=== PATIENT | female | born 1950 | race Caucasian/White ===

== ENCOUNTER 2021-09-08 13:46 | Emergency (ER) | payer BC, SELFPAY ==
[2021-09-08 14:23] VITALS: BP 167/90; PULSE 73; RESP 18; TEMP 36.7; O2SAT 100; BMI 29.2
--- NOTE | 2021-09-08 14:31 | CT_ITS ---
WS: [id number] CT HEAD TECHNIQUE: Noncontrast CT of the head obtained from the skullbase to the vertex. CLINICAL INFORMATION: trauma/fall/laceration COMPARISON: None. DLP: 939.[address] scans at [facility] use at least one of these dose optimization techniques: automated e xposure control; mA and/or kV adjustment per patient size (includes targeted exams where dose is matc hed to clinical indication); or iterative reconstruction. FINDINGS: No evidence of intracranial hemorrhage or mass effect. Ventricular system and basal cisterns are christianson nt. Mild small vessel changes with mild parenchymal volume loss. No extra-axial fluid collections. No evidence of mass or mass effect. Normal mclaughlin-white differentiation. Paranasal sinuses and mastoid air cells are well aerated. . Small sebaceous cyst left frontal scalp. Soft tissue laceration at the vertex. No visualized fractures. CT/CT head wo con* [id number] IMPRESSION: 1. No evidence of intracranial hemorrhage or mass effect. 2. Soft tissue laceration at the vertex. No visualized fractures. 3. No acute intracranial findings.
--- NOTE | 2021-09-08 14:31 | XR_ITS ---
WS: [id number] XR sacrum coccyx min 2V [id number] REASON FOR EXAM: fall/pain FINDINGS: No fracture or bone lesion of the sacrum or coccyx is identified. No soft tissue abnormality. XR/XR sacrum coccyx min 2V [id number] IMPRESSION: No acute abnormality.
--- NOTE | 2021-09-08 14:31 | W.ED.FALL ---
Documented by User: MIKE Baires 09/08/21 15:53 HPI - Fall General: Chief Complaint: Wound/Laceration Stated Complaint: GASH IN HEAD Time Seen by Provider: 09/08/21 14:27 Source: patient Mode of arrival: ambulatory Limitations: no limitations History of Present Illness: Patient is a nice 71-year-old female who presents to the ED today following a fall. 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 She states she sustained a laceration. No LOC. Patient is not on anticoagulation. She has no complaints of neck pain or back pain. Last tetanus unknown. Patient states she fell on her tailbone first and then struck her head. She does complain of tailbone pain. She has been ambulatory since the event without difficulty. She has no other complaints at this time. MD complaint: fall Onset (ago): hour(s) Fall from: standing Fall witnessed: no Place fall occurred: other ([place]) Loss of consciousness: None Prolonged down time: no Symptoms prior to fall: none Context: tripped/slipped Location of injury: head and other (coccyx) Associated symptoms-after fall: Reports no associated symptoms and headache(s); Denies abdominal pain, chest pain, confusion, difficulty walking or neck pain Review of Systems Eyes: Denies: change in vision, blurry vision, photophobia, floaters or seeing flashes Card: Denies: chest pain Resp: Denies: dyspnea GI: Denies: abdominal pain, nausea or vomiting Musc: Reports: back pain (reports tailbone pain); Denies: neck pain, extremity pain or joint pain Skin/Breast: Reports: other (scalp laceration) Neuro: Reports: headache(s); Denies: numbness in extremities, weakness in extremities, sensory changes, lack of coordination, difficulty walking, frequent falls, dizziness, confusion, behavioral changes, Slurred speech present or difficulty communicating thoughts Physical Exam Const: COMMON NORMALS: no acute distress, average body habitus, patient oriented x3, no limitations, healthy appearing, alert and well nourished GENERAL APPEARANCE: cooperative, comfortable, well kempt and well developed ORIENTATION/CONSCIOUSNESS: Yes awake, Yes oriented to person, Yes oriented to place and Yes oriented to time HENMT: COMMON NORMALS: normocephalic and Normal external nose present HEAD & SCALP: normocephalic HEAD IMAGES: 1. 1cm scalp laceration; no bleeding FACE & SINUS: normal facial exam NOSE: Normal external nose present Eye: GENERAL EYE: appearance normal, both eyes and all related structures Neck/C-Spine: COMMON NORMALS: full ROM CERVICAL SPINE: Yes cervical ROM normal, No pain with cervical ROM, No Cervical spine tenderness, No step off deformity and No Paracervical muscle tenderness Chest: COMMONS NORMALS: normal inspection of the chest and normal palpation of entire chest wall Resp: COMMON NORMALS: normal respiratory effort and clear to auscultation bilaterally AUSCULTATION: clear to auscultation bilaterally Cardio: COMMON NORMALS: regular rate and regular rhythm RATE: regular rate RHYTHM: regular rhythm GI: COMMON NORMALS: Soft to palpation and non-tender INSPECTION: Yes normal to inspection PALPATION: Yes Soft to palpation Back/Pelvis: COMMON NORMALS: thoracic and lumbar spine normal to inspection, no thoracic nor lumbar tenderness and thoraco-lumbar ROM normal PELVIS: Yes buttocks normal SACROILIAC JOINTS: Yes SI joints normal COCCYX: Coccyx tenderness present Extremity: COMMON NORMALS: normal to inspection and full ROM GENERAL: Yes normal exam except as noted Neuro: CRUZ COMA SCALE: document GCS findings Cruz coma scale eye opening: Spontaneous Cecilia coma scale verbal response: Orientated Cruz coma scale motor response: Obey commands Cecilia coma scale total score: 15 COMMON NORMALS: patient oriented x3, CN's II-XII intact bilaterally, moves all extremities, no focal motor deficits, no sensory deficits noted and gait normal SENSORIUM/ORIENTATION: Yes alert, Yes oriented to person, Yes oriented to place and Yes oriented to time Psych: APPEARANCE: Yes well kempt Skin: NARRATIVE SKIN EXAM: small scalp laceration-otherwise normal skin exam Procedures Laceration Laceration 1: Site: scalp Size (cm): 2.0 Description: linear Depth: simple, single layer Pre-repair: wound explored and irrigated extensively Skin layer closed with: other (hair apposition technique) Course Vital Signs: Vital signs: Vital Signs Temperature 98.0 F 09/08/21 14:23 Pulse Rate 75 09/08/21 15:00 Respiratory Rate 16 09/08/21 15:00 Blood Pressure 141/86 09/08/21 15:00 Pulse Oximetry 97 09/08/21 15:00 MDM - Fall Medical Decision Making Sacrum/coccyx XR negative. CT head negative. Scalp laceration copiously irrigated and repaired by hair apposition technique with good approximation. Wound care discussed at home. Return to ED precautions verbally given to patient. Lab Data Radiology Impressions Head CT 09/08/21 14:31 IMPRESSION: 1. No evidence of intracranial hemorrhage or mass effect. 2. Soft tissue laceration at the vertex. No visualized fractures. 3. No acute intracranial findings. Sacrum and Coccyx X-Ray 09/08/21 14:31 IMPRESSION: No acute abnormality. Discharge Plan Discharge Patient Disposition: Home Clinical Impression: Fall from slip, trip, or stumble, Laceration of scalp, Coccyx contusion Condition: Stable Discharge Orders: Discharge ED (Routine); Ordered 09/08/21 Ordered By: Cinthya Bruno Patient Instructions: Scalp Laceration Coding Level of Care Code ED [employer] for Chg Fwd Exam Comprehensive Documented by User: Liu Ward DO 09/08/21 17:43 HPI - Fall General: Chief Complaint: Wound/Laceration Stated Complaint: GASH IN HEAD Time Seen by Provider: 09/08/21 14:27 Physical Exam HENMT: HEAD IMAGES: 1. 1cm scalp laceration; no bleeding Neuro: CRUZ COMA SCALE: document GCS findings Cruz coma scale total score: 15 Course Vital Signs: Vital signs: Vital Signs Temperature 98.0 F 09/08/21 14:23 Pulse Rate 75 09/08/21 15:00 Respiratory Rate 16 09/08/21 15:00 Blood Pressure 141/86 09/08/21 15:00 Pulse Oximetry 97 09/08/21 15:00 MDM - Fall Medical Decision Making Sacrum/coccyx XR negative. CT head negative. Scalp laceration copiously irrigated and repaired by hair apposition technique with good approximation. Wound care discussed at home. Return to ED precautions verbally given to patient. Chart reviewed and patient discussed with midlevel. Agree with assessment and plan. Lab Data Radiology Impressions Head CT 09/08/21 14:31 IMPRESSION: 1. No evidence of intracranial hemorrhage or mass effect. 2. Soft tissue laceration at the vertex. No visualized fractures. 3. No acute intracranial findings. Sacrum and Coccyx X-Ray 09/08/21 14:31
[2021-09-08] MEDS: tetanus-diphtheria tox (adult) 0.5 mL SDV IM (14:55)
[2021-09-08 15:00] VITALS: BP 141/86; PULSE 75; RESP 16; O2SAT 97
== END 2021-09-08 16:02 | disposition home or self-care (01) ==
PROVIDERS: Emergency Provider Physician Assistant
DX: S01.01XA Laceration without foreign body of scalp, initial encounter (principal); S30.0XXA Contusion of lower back and pelvis, initial encounter; W01.198A Fall on same level from slipping, tripping and stumbling with subsequent striking against other object, initial encounter; Z23 Encounter for immunization
CPT/HCPCS: 12001; 70450; 72220; 90471; 90714; 99283